=== PATIENT | male | born 1985 ===

== ENCOUNTER 2019-01-28 21:07 | Emergency (ER) | payer OTHER ==
[2019-01-28 21:15] VITALS: BP 129/86; PULSE 76; RESP 18; TEMP 98; O2SAT 98
[2019-01-28] MEDS ORDERED: Iohexol 240 (50 ml) PO ONE (21:42)
[2019-01-28] MEDS ORDERED: Sodium Chloride 0.9% 1,000 ML IV STA (21:42)
--- NOTE | 2019-01-28 21:45 | ED PDOC ---
HPI: Abdomen Time Seen by Provider: 01/28/19 21:21 Chief Complaint (Nursing): Abdominal Pain Chief Complaint (Provider): Abd pain History Per: Patient History/Exam Limitations: no limitations Onset/Duration Of Symptoms: Days () Outside of [place] travel?: No Additional Complaint(s): Pt. with abd pain since . Started with runny nose and green phlegm 10 days ago. Took otc meds like sudaphed for it. The symptoms got better, but the abd pain started Tues. Is constant, more in left lower. No nausea, vomit, diarrhea, testicular pain, weakness, dysuria. No back pain. Concerned as he has hx of pancreatitis 2x. Past Medical History Reviewed: Nursing Documentation, Vital Signs Vital Signs: Last Vital Signs Temp 98.0 F 01/28/19 21:11 Pulse 76 01/28/19 21:11 Resp 18 01/28/19 21:11 BP 129/86 01/28/19 21:11 Pulse Ox 98 01/28/19 21:11 - Medical History PMH: Pancreatitis - Surgical History Surgical History: Appendectomy, Cholecystectomy - Family History Family History: States: Unknown Family Hx - Living Arrangements Living Arrangements: With Family - Allergies Allergies/Adverse Reactions: Allergies Allergy/AdvReac Type Severity Reaction Status Date / Time No Known Allergies Allergy Verified 01/28/19 21:15 Review of Systems ROS Statement: Except As Marked, All Systems Reviewed And Found Negative ENT: Positive for: Nose Discharge, Nose Congestion Gastrointestinal: Positive for: Abdominal Pain Physical Exam - Reviewed Nursing Documentation Reviewed: Yes Vital Signs Reviewed: Yes - Physical Exam Appears: Positive for: Non-toxic, No Acute Distress Head Exam: Positive for: ATRAUMATIC, NORMAL INSPECTION, NORMOCEPHALIC Skin: Positive for: Normal Color, Warm, DRY Eye Exam: Positive for: EOMI, Normal appearance, PERRL ENT: Positive for: Normal ENT Inspection Neck: Positive for: Normal, Painless ROM Cardiovascular/Chest: Positive for: Regular Rate, Rhythm Respiratory: Positive for: CNT, Normal Breath Sounds Gastrointestinal/Abdominal: Positive for: Soft, Tenderness (LLQ). Negative for: Distended, Guarding Back: Positive for: Normal Inspection. Negative for: L CVA Tenderness, R CVA Tenderness Extremity: Positive for: Normal ROM Neurological/Psych: Positive for: Awake, Alert, Normal Tone - Laboratory Results Result Diagrams: 01/28/19 21:53 01/28/19 21:53 Lab Results: no acute - ECG O2 Sat by Pulse Oximetry: 98 Pulse Ox Interpretation: Normal - Progress ED Course And Treament: 2337: Stable. AAOx3. Pain controlled. Dr. Chua to fu on ct. Disposition - Clinical Impression Clinical Impression: Abdominal pain - Patient ED Disposition Is Patient to be Admitted: Transfer of Care - Disposition Disposition Time: 23:38 Condition: STABLE Patient Signed Over To: Min Chua
[2019-01-28] MEDS ORDERED: Iohexol 240 (50 ml) ONE (22:01)
[2019-01-28 22:05] LABS: BASO # 0.1 K/uL (0.0-0.2); BASO % 0.7 % (0.0-2.0); EOS # 0.2 K/uL (0.0-0.7); EOS % 1.6 % (0.0-4.0); HEMOGLOBIN 16.1 g/dL (12.0-18.0); LYMPH # 2.8 K/uL (1.0-4.3); LYMPH % 28.8 % (20.0-40.0); MEAN CELL VOLUME 86.7 fl (80.0-94.0); MEAN CORPUSCULAR HEMOGLOBIN 29.2 pg (27.0-31.0); MEAN CORPUSCULAR HGB CONC 33.7 g/dL (33.0-37.0); MEAN PLATELET VOLUME 8.6 fl (7.2-11.7); MONO # 0.7 K/uL (0.0-0.8); MONO % 7.1 % (0.0-10.0); NEUT % 61.8 % (50.0-75.0); NRBC % 0.1 % (0.0-0.0); RBC 5.51 Mil/uL (4.40-5.90); RED CELL DISTRIBUTION WIDTH 13.1 % (11.5-14.5); WHITE BLOOD COUNT 9.7 K/uL (4.8-10.8)
[2019-01-28 22:15] LABS: ALB/GLOB RATIO 1.5 (1.0-2.1); ALBUMIN 4.7 g/dL (3.5-5.0); ALT/SGPT 41 U/L (21-72); AST/SGOT 31 U/L (17-59); BLOOD UREA NITROGEN 12 mg/dl (9-20); GFR NON-AFRICAN AMERICAN > 60; LIPASE 71 U/L (23-300)
[2019-01-28] MEDS ORDERED: Sodium Chloride 0.9% 50 ML IV ONE (23:53)
[2019-01-28] MEDS ORDERED: Iohexol 300 100 ML IJ ONE (23:53)
--- NOTE | 2019-01-29 00:08 | ED PDOC ---
- Laboratory Results Result Diagrams: 01/28/19 21:53 01/28/19 21:53 Lab Results: Total Bilirubin 0.9 mg/dl (0.2-1.3) 01/28/19 21:53 AST 31 U/L (17-59) 01/28/19 21:53 ALT 41 U/L (21-72) 01/28/19 21:53 Alkaline Phosphatase 122 U/L (38-126) 01/28/19 21:53 Total Protein 7.8 G/DL (6.3-8.2) 01/28/19 21:53 Albumin 4.7 g/dL (3.5-5.0) 01/28/19 21:53 Globulin 3.1 gm/dL (2.2-3.9) 01/28/19 21:53 Albumin/Globulin Ratio 1.5 (1.0-2.1) 01/28/19 21:53 Lipase 71 U/L (23-300) 01/28/19 21:53 - ECG O2 Sat by Pulse Oximetry: 98 (RA) Pulse Ox Interpretation: Normal Medical Decision Making Medical Decision Making: Time: 00:00 Patient care endorsed from Dr. Hedrick to provider pending CT. 01:10 CT Abdomen COMMENTS: Prior appendectomy. Mild diffuse thickening of the transverse, descending and sigmoid colon. Diffuse colonic diverticulosis. The liver is of uniform attenuation without mass or defect. There is no intra or extrahepatic biliary ductal dilatation. The spleen is normal. The gallbladder is surgically absent. The pancreas is of normal contour and attenuation characteristics. There is no evidence of adrenal mass. Both kidneys demonstrate prompt and equal nephrograms. The kidneys are normal in size, shape and configuration. There is no evidence of renal or ureteral mass. No renal or ureteral calculi are identified. There is no hydroureter or hydronephrosis. No evidence for small or large bowel obstruction. There is no evidence of abdominal ascites or lymphadenopathy. There is no evidence of intrinsic or extrinsic bladder mass. There is no pelvic ascites or lymphadenopathy. Images of the lung bases show no evidence of pleural or parenchymal mass. There are no pleural effusions. The bony structures are free of lytic or blastic lesions. IMPRESSION: Mild changes of uncomplicated colitis. Patient reports he's feeling well, all results given. Advised patient of need to followup with GI Referrals and results given Very well appearing upon discharge Scribe Attestation: Documented by Randall Augustin acting as a scribe for Min Chua MD. Provider Scribe Attestation: All medical record entries made by the Scribe were at my direction and personally dictated by me. I have reviewed the chart and agree that the record accurately reflects my personal performance of the history, physical exam, medical decision making, and the department course for this patient. I have also personally directed, reviewed, and agree with the discharge instructions and disposition. Disposition - Clinical Impression Clinical Impression: Colitis - POA Present On Arrival: None - Disposition Referrals: [facility] [Outside] Disposition: Routine/Home Disposition Time: 01:10 Condition: STABLE Prescriptions: Dicyclomine [Bentyl] 20 mg PO BID #30 tab Instructions: Colitis Forms: [employer] (Polish)
--- NOTE | 2019-01-29 10:45 | CT ---
Date of service: 01/28/2019 PROCEDURE: CT Abdomen and Pelvis with contrast HISTORY: abd pain COMPARISON: None. TECHNIQUE: Following oral and intravenous contrast administration, a CT examination of the abdomen and pelvis was performed from the domes of the diaphragms to the symphysis pubis with reformatted datasets provided not only axial but also sagittal and coronal series. Contrast dose: Omnipaque 300, 95 cc Radiation dose: Total exam DLP = 414.28 mGy-cm. This CT exam was performed using one or more of the following dose reduction techniques: Automated exposure control, adjustment of the mA and/or kV according to patient size, and/or use of iterative reconstruction technique. FINDINGS: LOWER THORAX: Unremarkable. LIVER: Diminished attenuation seen throughout the liver compatible hepatic steatosis. No mass or intrahepatic biliary dilatation identified throughout. GALLBLADDER AND BILE DUCTS: Prior cholecystectomy reiterated. Normal caliber cyst visualized CBD. PANCREAS: Unremarkable. No gross lesion or ductal dilatation. SPLEEN: Unremarkable. ADRENALS: Unremarkable. No mass. KIDNEYS AND URETERS: Unremarkable. No hydronephrosis. No solid mass. VASCULATURE: Unremarkable. No aortic aneurysm. No aortic atherosclerotic calcification or mural plaque present. BOWEL: No bowel obstruction or pericolic reactive change appreciable. Scattered diverticular seen variably throughout the colon concentrated primarily at the sigmoid segment. Borderline mural thickening is question at the sigmoid segment. No pericolic reactive change or fluid collection to suggest definitive segmental colitis though limited amount is difficult to exclude at the sigmoid segment. APPENDIX: Not visualized. Consider possible appendectomy. No CT evidence of appendicitis nevertheless. PERITONEUM: Unremarkable. No free fluid. No free air. LYMPH NODES: Unremarkable. No enlarged lymph nodes. BLADDER: Unremarkable. REPRODUCTIVE: Unremarkable. BONES: Minimal grade 1 spondylolisthesis with L4 posterior to L5 on degenerative basis. No spondylolysis. OTHER FINDINGS: None. IMPRESSION: 1. Scattered colonic diverticular seen throughout the colon, concentrated at the sigmoid segment which is borderline thick-walled. No pericolic reaction. Borderline sigmoid diverticulitis. Correlate clinically. No abscess ascites or free intra peritoneal gas collection. 2. Prior appendectomy question. No CT evidence of appendicitis. 3. Hepatic steatosis. Preliminary report provided by Prakash, 01/29/2019, 1:10 a.m..
== END 2019-01-29 01:49 | disposition home or self-care (01) ==
LOC: H.ER 21:07
DX: K52.9 Noninfective gastroenteritis and colitis, unspecified (principal); K57.32 Diverticulitis of large intestine without perforation or abscess without bleeding; K76.0 Fatty (change of) liver, not elsewhere classified
CPT/HCPCS: 74177; 80053; 83690; 85025; 96361; 96374; 96375; 99284; J1885; J7030; Q9966; Q9967